=== PATIENT | male | born 1985 | race Caucasian/White ===

== ENCOUNTER 2022-09-14 11:39 | Inpatient (IN) | payer OTHER ==
[~2022-09-14] VITALS: Ht 167.6 cm; Wt 65.9 kg
[2022-09-14 12:55] LABS: BASOPHILS % (AUTO) 0.6 % (0.0-2.0); HEMATOCRIT 44.3 % (41-53); HEMOGLOBIN 14.8 g/dL (13.5-17.5); LYMPHOCYTES # (AUTO) 0.6 K/uL (1.0-4.8); MEAN CORPUSCULAR HEMOGLOBIN 30.9 pg (26.0-34.0); MEAN CORPUSCULAR HGB CONC 33.4 G/dL (31.0-37.0); MEAN CORPUSCULAR VOLUME 92 fL (80-100); MONOCYTES # (AUTO) 0.6 K/uL (0.1-1.0); NEUTROPHILS # (AUTO) 3.2 K/uL (1.8-7.7); NEUTROPHILS % (AUTO) 71.4 % (40.0-70.0); PLATELET COUNT (AUTO) 219 K/uL (150-450); RED BLOOD CELL COUNT(AUTO) 4.79 MIL/uL (4.50-5.90); RED CELL DISTRIBUTION WIDTH 15.2 % (11.5-14.5)
[2022-09-14 13:00] LABS: ANION GAP 7 mmol/L (8-16); CARBON DIOXIDE 26 mmol/L (22-29); CHLORIDE 95 mmol/L (98-107); CREATININE 0.69 mg/dL (0.60-1.30); GLOMERULAR FILTR. RATE CALC > 60 mL/min (>60); GLUCOSE,RANDOM 181 mg/dL (70-110); POTASSIUM 3.8 mmol/L (3.5-5.1); SODIUM SERUM 128 mmol/L (136-145)
[2022-09-14 13:06] LABS: ALANINE AMINOTRANSFERASE 33 U/L (12-78); ALBUMIN 4.2 g/dL (3.4-5.0); ASPARTATE AMINOTRANSFERASE 42 U/L (15-37); BILIRUBIN,TOTAL 1.7 mg/dL (0.1-1.0); LIPASE 146 U/L (73-393); PHOSPHORUS 3.1 mg/dL (2.5-4.9); TOTAL PROTEIN, SERUM 7.9 g/dL (6.4-8.2)
[2022-09-14 13:28] LABS: ALKALINE PHOSPHATASE 83 U/L (46-116)
[2022-09-14] MEDS ORDERED: SODIUM CHLORIDE 0.9% 1,000 ML IV ONE (14:15)
[2022-09-14] MEDS ORDERED: FAMOTIDINE 10 MG/ML 2 ML VIAL IVP ONE (14:15)
[2022-09-14] MEDS ORDERED: ONDANSETRON HCL 4 MG/2 ML VIAL IVP ONE (14:15)
[2022-09-14] MEDS ORDERED: LORazepam 2 MG/ML VIAL IVP ONE (14:15)
[2022-09-14] MEDS ORDERED: BISACODYL 10 MG RECTAL RECTAL SUPPOSITORY PR PRN (15:00)
[2022-09-14] MEDS ORDERED: ONDANSETRON HCL 4 MG/2 ML VIAL IVP PRN (15:00)
[2022-09-14] MEDS ORDERED: ALBUTEROL SULFATE 2.5 MG/0.5 ML NEB SOLUTION NEB PRN (15:00)
[2022-09-14] MEDS ORDERED: 0.9% SODIUM CHLORIDE 10 ML SYRINGE IVP PRN (15:00)
[2022-09-14] MEDS ORDERED: IPRATROPIUM BROMIDE 0.5 MG/2.5 ML NEB SOLUTION NEB PRN (15:00)
[2022-09-14] MEDS: ChlordiazePOXIDE HCL 25 MG CAPSULE PO PRN (15:51)
[2022-09-14] MEDS: LORazepam 2 MG/ML VIAL IVP PRN (15:51)
[2022-09-14] MEDS: 1: MAGNESIUM SULFATE 2 GM, MVI, ADULT NO.1 WITH VIT K 10 ML, THIAMINE 100 MG, FOLIC ACID IV SCH ×5 (16:14)
[2022-09-14 17:03] VITALS: BP 124/82
[2022-09-14 19:45] VITALS: BP 132/93
[2022-09-15] MEDS ORDERED: SODIUM CHLORIDE 0.9% 0 ML ONE (03:00)
[2022-09-15] MEDS: 1: MAGNESIUM SULFATE 2 GM, MVI, ADULT NO.1 WITH VIT K 10 ML, THIAMINE 100 MG, FOLIC ACID IV SCH ×10 (03:01→16:38)
[2022-09-15 04:15] VITALS: BP 125/82
[2022-09-15] MEDS: ChlordiazePOXIDE HCL 25 MG CAPSULE PO PRN ×2 (06:23→16:33)
[2022-09-15 07:03] LABS: BASOPHILS % (AUTO) 0.5 % (0.0-2.0); EOSINOPHILS % (AUTO) 4.9 % (1.0-6.0); HEMATOCRIT 43.6 % (41-53); HEMOGLOBIN 14.5 g/dL (13.5-17.5); LYMPHOCYTES # (AUTO) 1.2 K/uL (1.0-4.8); LYMPHOCYTES % (AUTO) 23.1 % (22.0-44.0); MEAN CORPUSCULAR HGB CONC 33.3 G/dL (31.0-37.0); MEAN CORPUSCULAR VOLUME 93 fL (80-100); MONOCYTES # (AUTO) 0.6 K/uL (0.1-1.0); MONOCYTES % (AUTO) 11.4 % (2.0-9.0); NEUTROPHILS % (AUTO) 60.1 % (40.0-70.0); PLATELET COUNT (AUTO) 212 K/uL (150-450); RED BLOOD CELL COUNT(AUTO) 4.68 MIL/uL (4.50-5.90); RED CELL DISTRIBUTION WIDTH 15.2 % (11.5-14.5)
[2022-09-15 07:27] LABS: ALANINE AMINOTRANSFERASE 26 U/L (12-78); ALBUMIN 3.6 g/dL (3.4-5.0); ALKALINE PHOSPHATASE 78 U/L (46-116); ANION GAP 8 mmol/L (8-16); ASPARTATE AMINOTRANSFERASE 33 U/L (15-37); BILIRUBIN,TOTAL 1.1 mg/dL (0.1-1.0); CALCIUM, TOTAL 8.8 mg/dL (8.8-10.5); CARBON DIOXIDE 25 mmol/L (22-29); CHLORIDE 103 mmol/L (98-107); CREATININE 0.58 mg/dL (0.60-1.30); GLOMERULAR FILTR. RATE CALC > 60 mL/min (>60); GLUCOSE,RANDOM 99 mg/dL (70-110); SODIUM SERUM 136 mmol/L (136-145); TOTAL PROTEIN, SERUM 7.2 g/dL (6.4-8.2)
[2022-09-15 07:50] VITALS: BP 125/87
[2022-09-15] MEDS: LORazepam 2 MG/ML VIAL IVP PRN ×2 (14:53→20:58)
[2022-09-15] MEDS ORDERED: SODIUM CHLORIDE 0.9% 1,000 ML ONE (16:33)
[2022-09-15] MEDS: ACETAMINOPHEN 325 MG TABLET PO PRN (16:37)
[2022-09-15 19:53] VITALS: BP 120/86
[2022-09-15] MEDS: MELATONIN 3 MG TABLET PO PRN (20:57)
[2022-09-16] MEDS: 1: MAGNESIUM SULFATE 2 GM, MVI, ADULT NO.1 WITH VIT K 10 ML, THIAMINE 100 MG, FOLIC ACID IV SCH ×10 (04:10→17:30)
[2022-09-16 04:36] VITALS: BP 118/79
[2022-09-16 07:34] VITALS: BP 109/69
[2022-09-16] MEDS: ChlordiazePOXIDE HCL 25 MG CAPSULE PO PRN (09:49)
[2022-09-16 15:31] VITALS: BP 118/77
[2022-09-16] MEDS ORDERED: HydrOXYzine HCL 10 MG TABLET PO ONE (16:30)
[2022-09-16 19:35] VITALS: BP 123/72
[2022-09-16] MEDS: MELATONIN 3 MG TABLET PO PRN (19:59)
[2022-09-16] MEDS: FLUTICASONE PROPIONATE 50 MCG/SPRAY 16 GM NASAL SPRAY NASAL SCH (19:59)
[2022-09-16] MEDS: HydrOXYzine HCL 25 MG TABLET PO SCH (19:59)
[2022-09-16] MEDS: ACETAMINOPHEN 325 MG TABLET PO PRN (23:28)
[2022-09-17 04:05] VITALS: BP 115/65
[2022-09-17] MEDS: 1: MAGNESIUM SULFATE 2 GM, MVI, ADULT NO.1 WITH VIT K 10 ML, THIAMINE 100 MG, FOLIC ACID IV SCH ×5 (05:04)
[2022-09-17 08:00] VITALS: BP 137/78
[2022-09-17] MEDS: HydrOXYzine HCL 25 MG TABLET PO SCH (08:14)
[2022-09-17] MEDS: FLUTICASONE PROPIONATE 50 MCG/SPRAY 16 GM NASAL SPRAY NASAL SCH (08:16)
[2022-09-17] MEDS ORDERED: AMOX1TAB15 PO (11:15)
[2022-09-17] MEDS ORDERED: FLUT16SP NASAL (11:16)
[2022-09-17] MEDS ORDERED: HYDR-4527 PO (11:16)
[2022-09-17] MEDS ORDERED: ACET-784 PO (11:17)
[2022-09-17] MEDS ORDERED: BACI30OI10 TP (11:19)
== END 2022-09-17 12:12 | DRG 641 ==
LOC: EMS 11:43 → 6S 15:20
PROVIDERS: ADMIT Internal Medicine; ATTEND Internal Medicine
DX: E87.1 Hypo-osmolality and hyponatremia (principal); F10.139 Alcohol abuse with withdrawal, unspecified; S01.01XA Laceration without foreign body of scalp, initial encounter; F41.9 Anxiety disorder, unspecified; X58.XXXA Exposure to other specified factors, initial encounter; Y90.0 Blood alcohol level of less than 20 mg/100 ml; Z87.891 Personal history of nicotine dependence; Y93.89 Activity, other specified; Y92.89 Other specified places as the place of occurrence of the external cause; Y99.8 Other external cause status
CPT/HCPCS: 70450; 71045; 80053; 83690; 83735; 84100; 84484; 85025; 93005; 99285; G0480; J2060; J2405; J3411; J3475; J3490; J7030; 36415-L1; 36415-TC